=== PATIENT | female | born 1995 | race Caucasian/White ===

== ENCOUNTER 2019-04-07 19:32 | Emergency (ER) | payer BC, MEDICAID, SELFPAY ==
[2019-04-07 20:06] VITALS: BP 116/62; PULSE 112; RESP 20; TEMP 37.6; O2SAT 99; BMI 22.2
[2019-04-07 20:25] LABS: Basophils % 0.1 %; Hematocrit 40.1 % (37.0-47.0); Hemoglobin 13.4 g/dL (11.5-15.3); Lymphocytes # 0.3 10^3/uL (0.8-4.8); Lymphocytes % 3.6 %; Mean Corpuscular HGB Conc 33.4 g/dL (30.0-36.0); Mean Corpuscular Hemoglobin 28.9 pg (28.0-34.0); Mean Corpuscular Volume 86.6 fL (81-99); Mean Platelet Volume 10.1 fL (7.4-10.4); Monocytes # 0.5 10^3/uL (0.2-0.9); Monocytes % 6.2 %; Neutrophils # 7.9 10^3/uL (1.8-7.7); Neutrophils % 89.5 %; Nucleated Red Blood Cells % 0 %; Platelet Count 267 10^3/cmm (130-400); Red Blood Count 4.63 10^6/uL (4.1-5.3); Red Cell Distribution Width 12.9 % (12.1-15.1); White Blood Count 8.8 10^3/uL (4.0-10.0)
--- NOTE | 2019-04-07 20:39 | ED_ITS ---
Entered by Nelly Blount, acting as scribe for Tyler Sierra MD Apr 07, 2019 19:32 HPI - Nausea/Vomiting/Diarrhea General: Chief complaint: Nausea/Vomiting/Diarrhea Stated complaint: n/v, x9 weeks, r low side pain, fever Time Seen by Provider: 04/07/19 20:38 Source: patient and family Mode of arrival: ambulatory Limitations: no limitations History of Present Illness: HPI Narrative: 24 y/o female presents to the ED with complaint of N/V/D and abd pain. Pt states she has had intermittent fevers ranging from low grade to 101. MD elicited complaint: nausea, vomiting, diarrhea and abdominal pain Pertinent past history: abdominal surgery () Onset (ago): day(s) (1) Associated nausea: Yes Associated abdominal pain: Yes Location of pain: RUQ Relieving factors: none Associated symtoms: Reports nausea; Denies change in vision, chest pain or headache(s) Review of Systems Const: Reports: fever; Denies: chills Eyes: Denies: change in vision ENMT: Denies: throat pain or mouth pain Card: Denies: chest pain Resp: Denies: shortness of breath GI: Reports: abdominal pain, nausea, vomiting and diarrhea : Denies: difficulty urinating Musc: Denies: back pain or joint pain Skin/Breast: Denies: rash Neuro: Denies: headache or behavioral changes Psych: Denies: depression Endo: Denies: excessive urination Jorge/Lymph: Denies: easy bruising All/Imm: Denies: hives PFSH ED PFSH: Statuses (acute, chronic, etc) shown below reflect problem list status as previously entered and may not be historically accurate Social History Smoking and tobacco status: former smoker Physical Exam Const: COMMON NORMALS: no apparent distress, oriented x3 and healthy appearing HENMT: COMMON NORMALS: normocephalic and external nose normal HEAD & SCALP: normocephalic NOSE: external nose normal Eye: COMMON NORMALS: PERRL PUPIL: Yes PERRL Neck/C-Spine: COMMON NORMALS: full ROM and no lymphadenopathy Chest: COMMONS NORMALS: inspection of chest normal Resp: COMMON NORMALS: normal respiratory effort, no use of accessory muscles and clear to auscultation bilaterally AUSCULTATION: clear to auscultation bilaterally Cardio: COMMON NORMALS: regular rate and regular rhythm RATE: regular rate RHYTHM: regular rhythm GI: COMMON NORMALS: soft to palpation and no masses; negative for non-tender PALPATION: Yes soft Back/Pelvis: THORACIC SPINE/UPPER BACK: Yes normal to inspection Extremity: COMMON NORMALS: normal to inspection, full ROM and normal capillary refill Neuro: COMMON NORMALS: oriented x3 Psych: COMMON NORMALS: mental status grossly normal and cooperative Skin: COMMON NORMALS: no rashes or lesions noted GENERAL SKIN EXAM: no rashes or lesions noted Course Vital Signs: Vital signs: Vital Signs Temperature 99.8 F H 04/07/19 22:33 Pulse Rate 98 04/07/19 22:33 Respiratory Rate 16 04/07/19 22:33 Blood Pressure 106/59 04/07/19 22:33 Pulse Oximetry 98 04/07/19 22:33 MDM - Nausea/Vomiting/Diarrhea MDM Narrative: Medical decision making narrative: Patient presents here with vomiting and . Patient feels much improved here after Reglan and IV fluids. Patient's lab work here is normal and she has no signs appendicitis or cholecystitis. Patient is stable for discharge is return if worsening. Lab Data: Labs: Lab Results 04/07/19 04/07/19 04/07/19 Range/Units 20:16 20:17 20:17 WBC 8.8 (4.0-10.0) 10^3/ uL RBC 4.63 (4.1-5.3) 10^6/u L Hgb 13.4 (11.5-15.3) g/dL Hct 40.1 (37.0-47.0) % MCV 86.6 (81-99) fL MCH 28.9 (28.0-34.0) pg MCHC 33.4 (30.0-36.0) g/dL RDW 12.9 (12.1-15.1) % Plt Count 267 (130-400) 10^3/c mm MPV 10.1 (7.4-10.4) fL Neut % (Auto) 89.5 % Lymph % (Auto) 3.6 % [place] % (Auto) 6.2 % Eos % (Auto) 0.0 % Baso % (Auto) 0.1 % Neut # (Auto) 7.9 H (1.8-7.7) 10^3/u L Lymph # (Auto) 0.3 L (0.8-4.8) 10^3/u L [place]ke # (Auto) 0.5 (0.2-0.9) 10^3/u L Eos # (Auto) 0.0 (0.0-0.8) 10^3/u L Baso # (Auto) 0.0 (0.0-0.1) 10^3/u L Nucleated RBC % (a uto) 0 % Nucleated RBCs # 0.0 /100WBC Sodium 134 L (136-145) mmol/L Potassium 3.7 (3.5-5.1) mmol/L Chloride 99 (98-107) mmol/L Carbon Dioxide 19 L (22-29) mmol/L Anion Gap 19.7 H (5-19) BUN 6 (6-20) mg/dL Creatinine 0.5 (0.5-0.9) mg/dL GFR Calculation 149.1 H (90-130) mL/min Glucose 91 (74-109) mg/dL Calcium 9.8 (8.6-10.0) mg/Dl Total Bilirubin 0.2 (0.15-1.2) mg/dL AST 13 (0-32) U/L ALT 17 (0-33) U/L Alkaline Phosphata se 56 (35-105) IU/L Total Protein 7.3 (6.6-8.7) g/dL Albumin 4.6 (3.5-5.2) g/dL Globulin 2.7 (1.3-4.6) g/dL Lipase 13 (13-60) U/L Urine Color (Yellow) Urine Appearance (CLEAR) Urine pH (5-7) Ur Specific Gravit y (1.005-1.030) Urine Protein (Negative) Urine Glucose (UA) (Normal) Urine Ketones (Negative) Urine Occult Blood (Negative) Urine Nitrate (Negative) Urine Bilirubin (NEGATIVE) Urine Urobilinogen (Negative) mg/dL Ur Leukocyte Adela ase (Negative) Urine RBC (0-2) /hpf Urine WBC (0-5) /hpf Ur Squamous Epith Cells (0-5) Urine Bacteria (NONE) Urine Mucus Influenza Type A A g Negative (Negative) POC Influenza B Ag Negative (Negative) 04/07/19 Range/Units 22:05 WBC (4.0-10.0) 10^3/ uL RBC (4.1-5.3) 10^6/u L Hgb (11.5-15.3) g/dL Hct (37.0-47.0) % MCV (81-99) fL MCH (28.0-34.0) pg MCHC (30.0-36.0) g/dL RDW (12.1-15.1) % Plt Count (130-400) 10^3/c mm MPV (7.4-10.4) fL Neut % (Auto) % Lymph % (Auto) % [place]ke % (Auto) % Eos % (Auto) % Baso % (Auto) % Neut # (Auto) (1.8-7.7) 10^3/u L Lymph # (Auto) (0.8-4.8) 10^3/u L [place]ke # (Auto) (0.2-0.9) 10^3/u L Eos # (Auto) (0.0-0.8) 10^3/u L Baso # (Auto) (0.0-0.1) 10^3/u L Nucleated RBC % (a uto) % Nucleated RBCs # /100WBC Sodium (136-145) mmol/L Potassium (3.5-5.1) mmol/L Chloride (98-107) mmol/L Carbon Dioxide (22-29) mmol/L Anion Gap (5-19) BUN (6-20) mg/dL Creatinine (0.5-0.9) mg/dL GFR Calculation (90-130) mL/min Glucose (74-109) mg/dL Calcium (8.6-10.0) mg/Dl Total Bilirubin (0.15-1.2) mg/dL AST (0-32) U/L ALT (0-33) U/L Alkaline Phosphata se (35-105) IU/L Total Protein (6.6-8.7) g/dL Albumin (3.5-5.2) g/dL Globulin (1.3-4.6) g/dL Lipase (13-60) U/L Urine Color Yellow (Yellow) Urine Appearance Clear (CLEAR) Urine pH 6.5 (5-7) Ur Specific Gravit y 1.015 (1.005-1.030) Urine Protein 1+ H (Negative) Urine Glucose (UA) Norm (Normal) Urine Ketones 2+ H (Negative) Urine Occult Blood Neg (Negative) Urine Nitrate Negative (Negative) Urine Bilirubin Neg (NEGATIVE) Urine Urobilinogen Norm (Negative) mg/dL Ur Leukocyte Adela ase Negative (Negative) Urine RBC 0-4 H (0-2) /hpf Urine WBC None (0-5) /hpf Ur Squamous Epith Cells 0-4 H (0-5) Urine Bacteria Trace (NONE) Urine Mucus 2+ Influenza Type A A g (Negative) POC Influenza B Ag (Negative) Discharge Plan Discharge Patient Disposition: Home, Self-Care Clinical Impression: Hyperemesis gravidarum Condition: Stable Prescriptions: New Reglan 10 mg tablet 10 mg PO Q6H PRN (Reason: nausea and vomiting) Qty: 20 RF: 0 Discharge Orders: Discharge Order (Routine); Ordered 04/07/19 Ordered By: Tyler Sierra Referrals: [facility] [Other] Val Abreu MD [Physician] - 4-7 days Discharge Diet: Advance as tolerated Discharge Activity: Resume usual activity Patient Instructions: Hyperemesis Gravidarum (ED) Discharge Date/Time: 04/07/19 22:34 Coding Level of Care Code ED Crew Person for Chg Fwd Exam Problem Focused The documentation recorded by the Jose Alejandro amanda Ashley, accurately reflects the service I personally performed and the decisions made by Rigo no Korby, MD Apr 07, 2019 19:32
[2019-04-07 20:46] LABS: Alanine Aminotransferase 17 U/L (0-33); Albumin Level 4.6 g/dL (3.5-5.2); Alkaline Phosphatase 56 IU/L (35-105); Anion Gap 19.7 (5-19); Aspartate Amino Transferase 13 U/L (0-32); Blood Urea Nitrogen 6 mg/dL (6-20); Calcium 9.8 mg/Dl (8.6-10.0); Carbon Dioxide 19 mmol/L (22-29); Chloride 99 mmol/L (98-107); Globulin 2.7 g/dL (1.3-4.6); Glomerular Filtration Rate 149.1 mL/min (90-130); Glucose 91 mg/dL (74-109); Lipase 13 U/L (13-60); Potassium 3.7 mmol/L (3.5-5.1); Sodium 134 mmol/L (136-145); Total Bilirubin 0.2 mg/dL (0.15-1.2); Total Protein 7.3 g/dL (6.6-8.7)
[2019-04-07 20:51] LABS: Influenza A by IFA Negative (Negative); Influenza B by IFA Negative (Negative)
[2019-04-07] MEDS: sodium chloride 0.9% 1,000 ML 999 ML IV (21:07)
[2019-04-07] MEDS: metoclopramide 5 mg/mL SDV 2 mL 10 MG IVP (21:07)
[2019-04-07] MEDS: diphenhydrAMINE 50 mg/mL SDV 1mL IVP (21:07)
[2019-04-07 22:10] LABS: Urine Appearance Clear (CLEAR); Urine Color Yellow (Yellow); pH Urine 6.5 (5-7)
[2019-04-07 22:11] LABS: Add Urine Microscopic? YES; Bilirubin Urine Neg (NEGATIVE); Blood Urine Neg (Negative); Glucose Urine UA Norm (Normal); Ketones Urine 2+ (Negative); Leukocyte Esterase Urine Negative (Negative); Nitrate Urine Negative (Negative); Protein Urine 1+ (Negative); Specific Gravity, Urine 1.015 (1.005-1.030); Urobilinogen Urine Norm (Negative)
--- NOTE | 2019-04-07 22:16 | PC.NURSE ---
Provider at bedside with ultrasound machine.
[2019-04-07 22:18] LABS: Add Urine Culture? No; Bacteria Urine TRACE; Mucus Urine 2+; RBC Urine 0-4 /hpf (0-2); Squamous Epithelial Cell Urine 0-4 (0-5)
[2019-04-07 22:33] VITALS: BP 106/59; PULSE 98; RESP 16; TEMP 37.7; O2SAT 98
== END 2019-04-07 22:34 | disposition home or self-care (01) ==
PROVIDERS: Nurse Practitioner Family; Emergency Provider Emergency Medicine; Family Provider Family Medicine; PCP Family Medicine
DX: O21.0 Mild hyperemesis gravidarum (principal); Z3A.00 Weeks of gestation of pregnancy not specified; Z87.891 Personal history of nicotine dependence
CPT/HCPCS: 36415; 80053; 81003; 83690; 85025; 87804; 96360; 96374; 99282; J1200; J2765; J7030

== ENCOUNTER → 2019-06-10 14:40 | Outpatient (BNVA) | payer MEDICAID, SELFPAY | PROVIDERS: Family Provider Family Medicine; PCP Family Medicine; Visit Provider Nurse Practitioner Women's Health | DX: O09.299 Supervision of pregnancy with other poor reproductive or obstetric history, unspecified trimester (principal); Z87.59 Personal history of other complications of pregnancy, childbirth and the puerperium; O34.219 Maternal care for unspecified type scar from previous cesarean delivery; O09.219 Supervision of pregnancy with history of pre-term labor, unspecified trimester; Z3A.17 17 weeks gestation of pregnancy | CPT/HCPCS: 80053; 80076; 80306; 84156; 84315; 85027; 86592; 86762; 86803; 86850; 86900; 87340; 87806 ==

== ENCOUNTER → 2019-06-23 11:27 | Outpatient (BNVA) | payer MEDICAID, SELFPAY | PROVIDERS: Family Provider Family Medicine; PCP Family Medicine; Visit Provider Obstetrics & Gynecology | DX: Z34.90 Encounter for supervision of normal pregnancy, unspecified, unspecified trimester (principal); O09.892 Supervision of other high risk pregnancies, second trimester; Z34.80 Encounter for supervision of other normal pregnancy, unspecified trimester; Z87.59 Personal history of other complications of pregnancy, childbirth and the puerperium | CPT/HCPCS: 84156; 84315; 87491; 87591 ==

== ENCOUNTER → 2019-07-01 09:32 | Outpatient (BNVA) | payer MEDICAID, SELFPAY | PROVIDERS: Family Provider Family Medicine; PCP Family Medicine; Visit Provider Obstetrics & Gynecology | DX: Z36.89 Encounter for other specified antenatal screening (principal); Z3A.21 21 weeks gestation of pregnancy | CPT/HCPCS: 76805; 84315 ==

== ENCOUNTER → 2019-08-25 10:13 | Outpatient (BNVA) | payer MEDICAID, SELFPAY | PROVIDERS: Family Provider Family Medicine; PCP Family Medicine; Visit Provider Nurse Practitioner Women's Health | DX: O09.899 Supervision of other high risk pregnancies, unspecified trimester (principal) | CPT/HCPCS: 81000; 82950; 85027 ==

== ENCOUNTER → 2019-08-27 08:14 | Outpatient (BNVA) | payer MEDICAID, SELFPAY | PROVIDERS: Family Provider Family Medicine; PCP Family Medicine; Visit Provider Nurse Practitioner Women's Health | DX: O09.893 Supervision of other high risk pregnancies, third trimester; Z87.59 Personal history of other complications of pregnancy, childbirth and the puerperium; Z3A.28 28 weeks gestation of pregnancy | CPT/HCPCS: 82951; 82952 ==

== ENCOUNTER 2019-10-14 14:26 | Outpatient (CLI) | payer MEDICAID, SELFPAY ==
[2019-10-14] VITALS (8 sets, daily range): BP systolic 125–150; BP diastolic 75–91; PULSE 76–94; RESP 18; TEMP 37.3; BMI 26.7
--- NOTE | 2019-10-14 14:53 | PC.NURSE ---
Patient placed on monitor prior to 1449, patients account was being edited by registration and patients strip prior to account being edited is gone.
[2019-10-14 15:55] LABS: Add Urine Microscopic? NO
[2019-10-14 15:57] LABS: Basophils % 0.2 %; Eosinophils # 0.1 10^3/uL (0.0-0.8); Eosinophils % 0.4 %; Hematocrit 38.5 % (37.0-47.0); Hemoglobin 12.5 g/dL (11.5-15.3); Lymphocytes # 2.1 10^3/uL (0.8-4.8); Lymphocytes % 11.3 %; Mean Corpuscular HGB Conc 32.5 g/dL (30.0-36.0); Mean Corpuscular Volume 89.3 fL (81-99); Mean Platelet Volume 11.7 fL (7.4-10.4); Monocytes # 0.6 10^3/uL (0.2-0.9); Monocytes % 3.5 %; Neutrophils # 15.55 10^3/uL (1.8-7.7); Neutrophils % 83.8 %; Nucleated Red Blood Cells % 0 %; Platelet Count 240 10^3/cmm (130-400); Red Blood Count 4.31 10^6/uL (4.1-5.3); Red Cell Distribution Width 13.2 % (12.1-15.1); White Blood Count 18.5 10^3/uL (4.0-10.0)
[2019-10-14 16:09] LABS: Bilirubin Urine Neg (NEGATIVE); Blood Urine Neg (Negative); Glucose Urine UA Norm (Normal); Ketones Urine Negative (Negative); Leukocyte Esterase Urine Negative (Negative); Nitrate Urine Negative (Negative); Protein Urine Neg (Negative); Specific Gravity, Urine 1.005 (1.005-1.030); Urine Appearance Clear (CLEAR); Urine Color Yellow (Yellow); Urobilinogen Urine Norm (Negative); pH Urine 7 (5-7)
[2019-10-14 16:12] LABS: Alanine Aminotransferase 8 U/L (0-33); Albumin Level 3.8 g/dL (3.5-5.2); Alkaline Phosphatase 117 IU/L (35-105); Anion Gap 17.3 (5-19); Aspartate Amino Transferase 15 U/L (0-32); Blood Urea Nitrogen 9 mg/dL (6-20); Calcium 9.2 mg/dL (8.5-10.5); Carbon Dioxide 22 mmol/L (22-29); Chloride 103 mmol/L (98-107); Glomerular Filtration Rate 149.1 mL/min (90-130); Glucose 88 mg/dL (65-115); Osmolality Calculated 281 mOsm/kg (285-295); Potassium 4.3 mmol/L (3.5-5.1); Sodium 138 mmol/L (136-145); Total Bilirubin 0.2 mg/dL (0.15-1.2); Total Protein 6.8 g/dL (6.6-8.7); Uric Acid 5.1 mg/dL (2.4-5.7)
[2019-10-14 16:59] LABS: Urine Creatinine 16 mg/dL (28-217); Urine Protein Random 4 mg/dL
[2019-10-14 17:26] LABS: UPRO/UCREAT Ratio 0.25 mg/mg CR
== END 2019-10-14 17:20 | disposition home or self-care (01) ==
LOC: OPOB 14:46 → OBGYN 17:09
PROVIDERS: Family Provider Family Medicine; PCP Family Medicine; Visit Provider Obstetrics & Gynecology
DX: O16.9 Unspecified maternal hypertension, unspecified trimester (principal); Z3A.00 Weeks of gestation of pregnancy not specified
CPT/HCPCS: 36415; 59025; 80053; 81003; 82570; 84156; 84550; 85025; 99211

== ENCOUNTER → 2019-10-20 09:35 | Outpatient (BNVA) | payer MEDICAID, SELFPAY | PROVIDERS: Family Provider Family Medicine; PCP Family Medicine; Visit Provider Obstetrics & Gynecology | DX: O09.899 Supervision of other high risk pregnancies, unspecified trimester (principal); Z87.59 Personal history of other complications of pregnancy, childbirth and the puerperium; F41.8 Other specified anxiety disorders; O34.219 Maternal care for unspecified type scar from previous cesarean delivery; O16.9 Unspecified maternal hypertension, unspecified trimester | CPT/HCPCS: 80053; 82570; 84156; 84315; 84550; 85025; 87081 ==

== ENCOUNTER → 2019-10-21 15:32 | Outpatient (BNVA) | payer MEDICAID, SELFPAY | PROVIDERS: Family Provider Family Medicine; PCP Family Medicine; Visit Provider Obstetrics & Gynecology | DX: Z87.59 Personal history of other complications of pregnancy, childbirth and the puerperium (principal) | CPT/HCPCS: 84156 ==

== ENCOUNTER 2019-10-26 13:15 | Inpatient (IN) | payer MEDICAID, SELFPAY ==
[2019-10-26] VITALS (59 sets, daily range): BP systolic 0–151; BP diastolic 0–100; PULSE 67–97; RESP 16; TEMP 36.8–37; BMI 26.9
[2019-10-26] MEDS: lactated ringers 1,000 ML 999 ML IV (14:01)
[2019-10-26 14:11] LABS: Basophils % 0.2 %; Eosinophils % 0.3 %; Hematocrit 40.3 % (37.0-47.0); Hemoglobin 12.9 g/dL (11.5-15.3); Lymphocytes # 2.1 10^3/uL (0.8-4.8); Lymphocytes % 18.5 %; Mean Corpuscular Hemoglobin 28.3 pg (28.0-34.0); Mean Corpuscular Volume 88.4 fL (81-99); Mean Platelet Volume 11.6 fL (7.4-10.4); Monocytes # 0.3 10^3/uL (0.2-0.9); Monocytes % 2.9 %; Neutrophils # 8.91 10^3/uL (1.8-7.7); Neutrophils % 77.2 %; Nucleated Red Blood Cells % 0 %; Platelet Count 269 10^3/cmm (130-400); Red Blood Count 4.56 10^6/uL (4.1-5.3); Red Cell Distribution Width 13.5 % (12.1-15.1); White Blood Count 11.5 10^3/uL (4.0-10.0)
[2019-10-26 14:20] LABS: Alanine Aminotransferase 8 U/L (0-33); Albumin Level 3.7 g/dL (3.5-5.2); Alkaline Phosphatase 122 IU/L (35-105); Aspartate Amino Transferase 14 U/L (0-32); Blood Urea Nitrogen 7 mg/dL (6-20); Calcium 8.7 mg/dL (8.5-10.5); Carbon Dioxide 21 mmol/L (22-29); Chloride 103 mmol/L (98-107); Globulin 3.4 g/dL (1.3-4.6); Glomerular Filtration Rate 120.8 mL/min (90-130); Glucose 103 mg/dL (65-115); Osmolality Calculated 280 mOsm/kg (285-295); Sodium 137 mmol/L (136-145); Total Bilirubin 0.2 mg/dL (0.15-1.2); Total Protein 7.1 g/dL (6.6-8.7); Uric Acid 5.8 mg/dL (2.4-5.7)
[2019-10-26] MEDS: oxytocin 30 UNIT/500 ML BAG IV (14:36)
[2019-10-26 14:54] LABS: Urine Creatinine 42 mg/dL (28-217); Urine Protein Random 5 mg/dL
[2019-10-26 15:09] LABS: UPRO/UCREAT Ratio 0.12 mg/mg CR
[2019-10-26] MEDS: dextrose 5%-lactated ringers 1,000 ML 125 ML IV (18:37)
[2019-10-27] VITALS (167 sets, daily range): BP systolic 0–162; BP diastolic 0–114; PULSE 60–133; RESP 15–16; TEMP 36.6–37.2; O2SAT 87–99
[2019-10-27] MEDS: dextrose 5%-lactated ringers 1,000 ML 125 ML IV ×3 (02:49→17:58)
[2019-10-27] MEDS: alum-mag-hydroxide-sime 30 mL UDC PO (04:19)
[2019-10-27] MEDS: lactated ringers 1,000 ML 999 ML IV ×2 (14:45→17:01)
--- NOTE | 2019-10-27 16:08 | ANES.PREANE2 ---
Pre-Anesthetic Assessment Pre-Anesthetic Assessment: Height/Weight: Height 1.68 m Weight 75.75 kg Temp Pulse Resp BP Pulse Ox 98.5 F 74 16 150/78 88 L 10/27/19 14:23 10/27/19 16:06 10/27/19 03:45 10/27/19 16:06 10/27/19 15:59 Preop Diagnosis: IUP Proposed Procedure: Lumbar Labor Epidural Was Beta Deyvi taken within 24 hours: N/A Social: Social History: No alcohol and No tobacco Exam: Pre-Anes Outpt Exam: alert, oriented x 3, clear to auscultation bilaterally and regular rate & rhythm Airway: Submandibular: WNL Cervical ROM: WNL MP: 2 Dentition: Full History/ROS: No significant history except as noted and No significant complaints Pulmonary: Pulmonary: None reported CV/HEM: CV/HEM: HTN Comments: gest. htn. hx pre=eclampsia : : None reported Hepatic: Hepatic: None reported GI: GI: GERD Metabolic: Metabolic: None reported Musc/skel: Musc/skel: None reported Neuropsych: Neuropsych: None reported Anesthetic Plan: ASA status: 2 Anesthesia: Regional (specify below) (epidural) Meds/Allergies Current Medications: Current Medications Generic Name Dose Route Start Last Admin Trade Name Freq PRN Reason Stop Dose Admin Al Hydrox/Mg [place] x/Simethicone 30 ml 10/26/19 13:23 10/27/19 04:19 Maalox PO 30 ml Q4H PRN Administration INDIGESTION Dextrose/Lactated Ringer's 1,000 mls @ 125 m ls/hr 10/26/19 13:30 10/27/19 10:44 Dextrose 5%-Lact ated Ringers IV 125 mls/hr .Q8H JEAN-PAUL Administration PFSH Anesthesia PFSH: Medical History (Updated 10/26/19 @ 16:40 by Val Abreu MD) Anxiety with depression Diagnosed many years ago. Her symptoms were initially well controlled with Wellbutrin and clonazepam. She is right now seeing an online counselor and as she is doing well with this she has gone off her medication since June 2017 and denies any symptoms and is doing well off of medication. She is being managed by her primary care provider Dr. Gonzalez in [place], [place]. No pertinent past medical history Denies diabetes, asthma, hypertension, seizures, DVT/PE PMD: Dr. Gonzalez Surgical History H/O section (09/22/15) Dr Capps, at [facility], [place], [place].Complications: Preclampsia and breech ----Primary low transverse delivery with 2 layer closure documented. No extensions. Family History Father Diabetes Hypertension Grandfather Heart disease Maternal grandfather Paternal grandfather Stroke Maternal grandfather Family/Other Stroke Maternal uncle Heart disease Maternal uncle Breast cancer Maternal great aunt, diagnosed at age 47 Grandmother Stroke Maternal grandmother Lung cancer paternal Mother Hypertension Denies family history of Colon cancer Ovarian cancer Hyperlipidemia Uterine cancer Thyroid condition Social History Smoking and tobacco status: former smoker Alcohol intake: former Additional social history: - Tobacco Use: Started smoking at the age of 13 and smoked about 5 cigarettes a day. Quit when she found out she was in February 2015, started smoking again in 10/2015 and smoked up to 1 pack per day until 11/2019 when she quit again due to being . Alcohol Use: Drinks an alcoholic beverage twice monthly on average; denies use with . Drug Use: Reports history of marijuana use, starting at age 16; smoked for approximately 2 years and denies any drug use since then. 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 Female Reproductive History: Date of last menstrual period: 02/06/19 : 2 Data Anesthesia CBC & Chem 7: 10/26/19 13:45 10/26/19 13:45 Other Labs: Laboratory Results - last 48 hr 10/26/19 10/26/19 10/26/19 13:45 13:45 13:45 WBC 11.5 H RBC 4.56 Hgb 12.9 Hct 40.3 MCV 88.4 MCH 28.3 MCHC 32.0 RDW 13.5 Plt Count 269 MPV 11.6 H Neut % (Auto) 77.2 Lymph % (Auto) 18.5 [place] % (Auto) 2.9 Eos % (Auto) 0.3 Baso % (Auto) 0.2 Neut # (Auto) 8.91 H Lymph # (Auto) 2.1 [place] # (Auto) 0.3 Eos # (Auto) 0.0 Baso # (Auto) 0.0 Nucleated RBC % (auto) 0 Nucleated RBCs # 0.0 Sodium 137 Potassium 4.0 Chloride 103 Carbon Dioxide 21 L Anion Gap 17.0 BUN 7 Creatinine 0.6 GFR Calculation 120.8 Glucose 103 Calculated Osmolality 280 L Uric Acid 5.8 H Calcium 8.7 Total Bilirubin 0.2 AST 14 ALT 8 Alkaline Phosphatase 122 H Total Protein 7.1 Albumin 3.7 Globulin 3.4 U Random Total Protein Urine Creatinine Protein/Creatinin Ratio Blood Type A Positive Rho(D) Type Positive Antibody Screen Negative 10/26/19 13:45 WBC RBC Hgb Hct MCV MCH MCHC RDW Plt Count MPV Neut % (Auto) Lymph % (Auto) [place] % (Auto) Eos % (Auto) Baso % (Auto) Neut # (Auto) Lymph # (Auto) [place] # (Auto) Eos # (Auto) Baso # (Auto) Nucleated RBC % (auto) Nucleated RBCs # Sodium Potassium Chloride Carbon Dioxide Anion Gap BUN Creatinine GFR Calculation Glucose Calculated Osmolality Uric Acid Calcium Total Bilirubin AST ALT Alkaline Phosphatase Total Protein Albumin Globulin U Random Total Protein 5 Urine Creatinine 42 Protein/Creatinin Ratio 0.12 Blood Type Rho(D) Type Antibody Screen Cardiac Studies: No Data to Display Anesthesia Procedures Epidural: Time Out Performed: Yes Consents Signed: Procedure Consent Consent: from patient, risks and benefits reviewed and patient agrees to proceed Lumbar Level: L3-L4 Epidural position: sitting Epidural procedure: sterile prep of area, 1% lidocaine to numb the area (5), 18 g needle, negative for paresthesia passed, neg for paresthesia, test dose given, 1.5% xylocaine 1:200k epi (5), 0.2% Ropivacaine bolus ml (5), placed PCEA (5cc q10min x 3), no systemic response, sterile dressing applied, L.U.D. no apparent complications and 0.2% Ropiavacaine @ mls/hr (13) Additional Comments: Called to OB for epidural placement, pt evaluated and assessed for placement and explained procedure. Labs reviewed. Pt agrees to proceed. placed to 5cm in space and tolerated well. Bolused with epidural pump and VSS throughout per nursing chart. Last BP 124/78. Pain much improved.
--- NOTE | 2019-10-27 19:07 | P.HP_ITS ---
Providers/Chief Complaint Admitting Physician: Val Abreu MD Primary Care Provider: Aime Gonzalez Chief Complaint: Gestational Hypertension Induction HPI RESEARCH ASSOCIATE PROFESSOR History of Present Illness Patient is a 24-year-old white female 2, para 0-1-0-1 with an LMP of 02/06/2019 and an EDC of 11/13/2019 based on LMP and consistent with a 21-week ultrasound. She presented to labor and delivery on 10/26/2019 at 37-3/7 weeks gestation for induction of labor due to gestational hypertension. Her care has been mainly provided by Dr. Tian at [facility]. Patient was noted to have elevated blood pressures last week and was noted to have elevated blood pressures on the day of admission. Based upon this, she was diagnosed with gestational hypertension. Her past history was significant for having had severe preeclampsia with her first requiring emergency section at 33 weeks gestation. Patient was admitted to the hospital by Dr. Tian in the afternoon of 10/26/2019 and was started on Pitocin for induction of labor. She was continued on Pitocin through the day and by the evening had made no significant change and the Pitocin was stopped. Pitocin was restarted early this morning and continued through the day. At around 1300 today artificial rupture membranes was p erformed by Dr. Tian with clear fluid present. Patient became more uncomfortable through the afternoon and had epidural placed. During the afternoon, she had a reactive tracing with subtle late decelerations periodically. At approximately 16:40 she developed recurrent variable decelerations in the late position with loss of variability. Pitocin was stopped at that time and typical intrauterine resuscitation performed with position changes, oxygen, and fluid boluses. Following this as the contractions slowed, she continued to have subtle late decelerations. However, reactivity returned despite the decelerations. As long as contractions were further than 6 minutes apart, the late decelerations were gone. However anytime contractions were closer than this late decelerations return. LABS 06/10/2019 Blood type: A+ Antibody screen: Negative CBC: 12.7 <12.9/39.3 > 292 Rubella : 127.3--immune Hepatitis B surface antigen: Nonreactive Hepatitis C antibody: Nonreactive RPR: Nonreactive HIV: Nonreactive Drug screen: Negative LFT: AST:10/ALT:7/albumin:4.0/alkaline phosphatase: 53 Urine culture: <5,000 COLS/ML MIXED JACEK-- PROBABLE CONTAMINANTS. CF: Declines 06/10/2019 24-hour urine for total protein: 78 mg (total volume 177 5 mL) 06/23/2019 Pap smear: negative for intraepithelial lesion or malignancy--09/22/2018 Gonorrhea: Negative Chlamydia: Negative 07/01/2019 Quad screen: Declined 08/25/2019 28 week CBC: 14.3 <13.0/40.1 >266 GCT: 176 08/26/2019 3 hour GTT------> 90, 184, 140, 105--1 abnormal level; no further follow-up necessary 10/20/2019 GBS: Negative CBC : 12.5<12.6/39.2> 267 AST/ALT-01/29; BUN/creatinine-within normal limits Uric acid-5.6 Protein creatinine ratio-0.12-not preeclamptic OB Ultrasound LMP-02/06/2019 SAMANTHA by LMP-11/13/2019 1) 07/01/2019([facility]-anatomy) AUA-21w6d SAMANTHA by sono-11/05/2019 S=D ----------> single live intrauterine , transverse backup, anterior gra de 1 placenta without previa, visually normal fluid, CUSTOMER QUALITY SPECIALIST 4.9 cm, male, cervix closed measuring 3.6 cm, EFW 465 g, 1 pound 0 ounce, 96 percentile. Anatomy visualized normal and complete except for poor visualization of four-chamber view of heart. Recommend repeat evaluation at 24 weeks. 2) 07/28/2019([facility]-anatomy) AUA-25w5d SAMANTHA by sono-11/05/2019 S=D ------> single live intrauterine , male, breech, anterior grade 1 placenta without previa, CUSTOMER QUALITY SPECIALIST 6.1 cm, cervix closed measuring 3.9 cm, EFW 810 g, 1 pound 13 ounces, 78 percentile. Previously nonvisualized anatomy-heart visualized and appears within normal limits. Biparietal diameter measures slightly larger than other measurements-consider sonogram for growth in 4 to 6 weeks--- at 29 weeks 3) 09/02/2019([facility]-growth) AUA-31w6d SAMANTHA by sono-10/29/2019 S=D -------> single live intrauterine , male, cephalic, anterior grade 1 placenta without previa, BRENTON 18 cm, CUSTOMER QUALITY SPECIALIST 6.5 cm, cervix closed-3.4 cm, EFW 1775 g, 3 pounds 15 ounces, 91 percentile. Appropriate interval growth. 4) 10/20/19([facility]-growth) AUA-36w3d SAMANTHA by sono-11/14/2019 S=D -------> single live intrauterine , male, cephalic, anterior grade 1 placenta without previa, BRENTON 9.9 cm, CUSTOMER QUALITY SPECIALIST 7.8 cm, cephalic, EFW 3014 g, 6 pounds 10 ounces, 50th percentile. Review of Systems Const: Denies: fever(s) or chills Eyes: Denies: change in vision ENMT: Denies: throat pain or nasal congestion Card: Reports: swelling of feet/ankles; Denies: chest pain, palpitations or lightheadedness Resp: Denies: dyspnea, productive cough, non-productive cough or wheezing GI: Denies: abdominal pain, nausea or vomiting : Denies: difficulty voiding or dysuria Neuro: Denies: headache(s), dizziness or seizure-like activity Psych: Reports: anxiety; Denies: depression Jorge/Lymph: Denies: easy bruising or easy bleeding Medications/Allergies Home Medications Medication Instructions Recorded Confirmed Last Taken Type PNV 153-FA 400 mcg-om3 35 mg-dha 2 tab PO DAILY tab 06/10/19 10/26/19 10/14/19 09:00 History 25 mg-epa 5 mg-fish oil chew tablet aspirin 81 mg tablet,delayed 81 mg PO DAILY 06/23/19 10/26/19 10/14/19 09:00 History release Allergies Allergy/AdvReac Type Severity Reaction Status Date / Time Sulfa (Sulfonamide Allergy Rash/itchin Verified 10/26/19 08:15 Antibiotics) g PFSH RESEARCH ASSOCIATE PROFESSOR PFSH: Medical History Anxiety with depression Diagnosed many years ago. Her symptoms were initially well controlled with Wellbutrin and clonazepam. She is right now seeing an online counselor and as she is doing well with this she has gone off her medication since June 2017 and denies any symptoms and is doing well off of medication. She is being managed by her primary care provider Dr. Gonzalez in [place], [place]. No pertinent past medical history Denies diabetes, asthma, hypertension, seizures, DVT/PE PMD: Dr. Gonzalez Surgical History H/O section (09/22/15) Dr Capps, at [place], [place].Complications: Preclampsia and breech ----Primary low transverse delivery with 2 layer closure documented. No extensions. Family History Father Diabetes Hypertension Grandfather Heart disease Maternal grandfather Paternal grandfather Stroke Maternal grandfather Family/Other Stroke Maternal uncle Heart disease Maternal uncle Breast cancer Maternal great aunt, diagnosed at age 47 Grandmother Stroke Maternal grandmother Lung cancer paternal Mother Hypertension Denies family history of Colon cancer Ovarian cancer Hyperlipidemia Uterine cancer Thyroid condition Social History Smoking and tobacco status: former smoker Alcohol intake: former Additional social history: - Tobacco Use: Started smoking at the age of 13 and smoked about 5 cigarettes a day. Quit when she found out she was in February 2015, started smoking again in 10/2015 and smoked up to 1 pack per day until 11/2019 when she quit again due to being . Alcohol Use: Drinks an alcoholic beverage twice monthly on average; denies use with . Drug Use: Reports history of marijuana use, starting at age 16; smoked for approximately 2 years and denies any drug use since then. 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 History History History 2 Term 0 Miscarriages/Ectopic 0 1 Living Children 1 Care SAMANTHA Calculator Estimated Delivery Date Method Current WG Current Estimate 11/13/19 LMP (Certain) 37w 4d Expected Delivery Route/Plan Trial of labor Specific Issues/Plans * Hx of Pre-Eclampsia in prior -severe preeclampsia requiring delivery at 32 weeks * Hx of C/S--low transverse delivery- candidate and desires BRAD * History of anxiety and depression-not currently on any medication Vitals/I&O/Wt Last Vital Signs Temp 98.3 F 10/27/19 16:20 Pulse 94 10/27/19 18:58 Resp 16 10/27/19 03:45 BP 110/81 10/27/19 18:58 Pulse Ox 88 L 10/27/19 15:59 10/27/19 10/27/19 10/27/19 06:59 14:59 22:59 Intake Total 1007.50 / 2043.450 1054.717 / 1054.717 975.917 / 2029.634 Balance 1007.50 / 2043.450 1054.717 / 1054.717 975.917 / 2029.634 Weight last 48 hrs Weight 167 lb Physical Exam Const: COMMON NORMALS: no acute distress, average body habitus, alert and well nourished GENERAL APPEARANCE: well developed ORIENTATION/CONSCIOUSNESS: Yes oriented to person, Yes oriented to place and Yes oriented to time Resp: COMMON NORMALS: normal respiratory effort and clear to auscultation bilaterally AUSCULTATION: clear to auscultation bilaterally Cardio: COMMON NORMALS: regular rate, regular rhythm, No gallops present (Cardio) and No rub (Cardio) RATE: regular rate RHYTHM: regular rhythm GI: COMMON NORMALS: Soft to palpation, non-tender, No hepatosplenomegaly present and no masses (Except for gravid uterus.) AUSCULTATION: Yes normoactive bowel sounds PALPATION: Yes Soft to palpation, Yes No hepatos plenomegaly present and No Hernia present Neuro: SENSORIUM/ORIENTATION: Yes alert, Yes oriented to person, Yes oriented to place and Yes oriented to time Psych: COMMON NORMALS: normal affect MOOD & AFFECT: Yes euthymic mood Urinary Catheter Management^: Lozano: Cath Placed During This Visit: yes Urinary Catheter Date of Insertion: 10/27/19 Urinary Catheter Time of Insertion: 16:50 Data : 10/26/19 13:45 10/26/19 13:45 Other data: monitoring currently baseline heart rate 125 with moderate variability and accelerations present. Occasional variable decelerations. A&P Assessment and plan (1) Non-reassuring heart tones complicating , antepartum: Patient had recurrent late decelerations with loss of variability and loss of accelerations. At this point with infrequent contractions, the decelerations have resolved. However anytime contractions have gotten closer than about every 6 minutes the late decelerations returned. I discussed with patient that based upon this, the likelihood of her delivering vaginally is very small. I discussed with her option of proceeding to section. Risks of section was discussed with her including bleeding to the point of needing a blood, transfusion, infection, and injury to intra-abdominal organs including bowel, bladder, blood vessels, nerves, and ureters. I discussed with patient and her partner that the preferred time for doing the is not when it is an emergency situation. Questions were answered. They have decided to go ahead and proceed with section. Status: Acute (2) Gestational hypertension: Patient has had elevated blood pressures to the point to meet criteria for gestational hypertension. She has not required medications to treat the blood pressure at this time. She was evaluated for preeclampsia and did not meet criteria for preeclampsia. Blood pressures will continue to be followed . Status: Acute Qualifiers: Trimester: third trimester Qualified Code(s): O13.3 - Gestational [preg indira-induced] hypertension without significant proteinuria, third trimester (3) History of delivery, currently : Status: Acute Attestations Medical Necessity Statement*: Patient being induced for gestational hypertension at 37 weeks. Coding Level of Care Code Acute Metal Storage Worker for Alex Ivanna Diagnoses Non-reassuring heart tones complicating , antepartum O36.8390 Gestational hypertension O13.3 Trimester: third trimester History of delivery, currently O34.219
[2019-10-27] MEDS: famotidine 20 mg/2 mL INJ IVP (19:19)
[2019-10-27] MEDS: citric acid-sodium citrate 30 mL UDC PO (19:19)
[2019-10-27] MEDS: metoclopramide 5 mg/mL SDV 2 mL 10 MG IVP (19:19)
--- NOTE | 2019-10-27 20:36 | P.OP_ITS ---
Operative Report Date of procedure: October 27, 2019 Pre-op Diagnosis: 1. Nonreassuring heart tones, 2. Gestational hypertension at 37-4/7 weeks, 3. Previous section, failed Post-op Diagnosis: 1. Nonreassuring heart tones -delivered, 2. Gestational hypertension -delivered, 3. Failed , 4. Viable male Procedure Done: Repeat low transverse section Specimens removed/disposition: None Surgeon: Cecilio Hidalgo Printing Binder[employer] Assistant: None Anesthesia: Epidural Estimated blood loss (mL): 400 IV fluids (mL): 400 Complications: None Findings: 1. Viable male weighing 5 lbs 5 oz (2420 g) with a length of 19 inches and Apgars of 9 at 1 minute and 9 at 5 minutes. 2. Normal-appearing uterus, tubes, and ovaries. Brief History: 24-year-old white female 2, para 0-1-0-1 with an LMP of 02/06/2019 and an EDC of 11/13/2019 based on LMP and consistent with a 21-week ultrasound, which placed her at 37-4/7 weeks gestation today. Patient had been admitted on 10/26/2019 for induction of labor due to gestational hypertension. She was attempting . Patient made it to approximately 5 cm dilation before developing recurrent late decelerations. Since she was distant from delivery, decision was made to go ahead and proceed to a section. Procedure: Patient was taken to the operating room where epidural anesthesia was further dosed. She was prepped and draped in the usual sterile fashion in a dorsal supine position with a leftward tilt. Lozano catheter and sequential compression boots had been placed prior to starting the case. A Pfannenstiel skin incision was made with a knife through the patient's prior scar and carried down to the underlying fascia with the knife. Fascia was incised in the midline with the knife and extended laterally with Hardin scissors. Superior aspect of the fascia was grasped with Em clamps, elevated, and sharply and bluntly dissected. The inferior aspect of the fascia was grasped with Em clamps, elevated, and sharply and bluntly dissected. The rectus muscles were in the midline. Peritoneum was sharply entered. Peritoneal incision was extended both superiorly and inferiorly with good visualization of the bladder. Bladder blade was inserted. The vesicouterine peritoneum was tented up and sharply entered. It was extended laterally and the bladder flap was created digitally. Bladder blade was reinserted. A transverse incision was made with the knife in the lower uterine segment. Clear fluid was obtained upon entry into the uterine cavity. The 's head was delivered and 2 loops of nuchal cord were noted and reduced. The rest of the infant delivered atraumatically. Nose and mouth were suctioned with bulb suction. Cord was clamped and cut and the infant was handed off to Dr. Melendez and the waiting nurses. Cord blood was obtained. Placenta was delivered via uterine massage. Patient received 20 units of Pitocin in the IV fluids. The uterus was exteriorized and cleared of clots and debris. The uterine incision was closed in a running locking fashion using 0 Vicryl suture. The incision was imbricated using 0 Vicryl suture in a horizontal mattress fashion. The incision was inspected and noted to be hemostatic. Posterior cul-de-sac was thoroughly irrigated and cleared of clots and blood. The uterus was returned to the abdomen. The uterine incision was irrigated and noted to be hemostatic. The gutters were cleared of clots and blood. The rectus muscles and peritoneum were reapproximated in the midline using interrupted stitches of 2-0 Vicryl suture. The muscle layer was irrigated and noted to be hemostatic. The fascia was reapproximated using 0 Vicryl suture in a running fashion. The subcutaneous layer was irrigated and brought to hemostasis using electrocautery. It was reapproximated using 3-0 plain suture in an interrupted fashion. Skin was reapproximated using 4-0 Vicryl suture in a subcuticular fashion. Steri-Strips were applied. Patient tolerated the procedures well. Sponge, needle, and instrument counts were correct. DRAINS: Lozano catheter POSTOPERATIVE STATUS: The patient was left to recover in satisfactory condition
[2019-10-28] VITALS (9 sets, daily range): BP systolic 119–156; BP diastolic 46–95; PULSE 75–90; RESP 15–18; TEMP 36.6–37.1; O2SAT 95–100
[2019-10-28] MEDS: dextrose 5%-lactated ringers 1,000 ML 125 ML IV (01:18)
--- NOTE | 2019-10-28 04:35 | PC.NURSE ---
PATIENT REPORTS TO THIS NURSE SHE HAS PASSED GAS .
--- NOTE | 2019-10-28 04:56 | PC.NURSE ---
PATIENT WALKED LENGTH OF HALLWAY THREE TIMES WITH THIS NURSE. PATIENT TOLERATED WALKING WELL, STATED IT FELT GOOD TO BE MOVING . PATIENT RETURNED TO HER ROOM AND IS SITTING UP IN BEDSIDE CHAIR. CLWR.
--- NOTE | 2019-10-28 06:57 | PM.PN ---
Subjective Subjective: Interval history: Patient reports doing well this morning. States pain is been well controlled. Denies lightheadedness or dizziness with ambulation. Denies shortness of breath or chest pains. Reports tolerating liquids without nausea or vomiting. Reports passing flatus. States bleeding like a heavy period. Vitals/I&O/Wt Last Vital Signs Temp 98.3 F 10/28/19 04:30 Pulse 81 10/28/19 04:30 Resp 16 10/28/19 04:30 BP 119/46 10/28/19 04:30 Pulse Ox 98 10/28/19 04:30 10/27/19 10/27/19 10/28/19 14:59 22:59 06:59 Intake Total 1054.717 / 2850.671 1108.917 / 2430.634 368.75 / 2799.384 Output Total 1150 / 1150 350 / 1500 Balance 1054.717 / 1054.717 225.917 / 1280.634 18.75 / 1299.384 Weight last 48 hrs Weight 167 lb Physical Exam Const: COMMON NORMALS: no acute distress, average body habitus, alert and well nourished GENERAL APPEARANCE: well developed ORIENTATION/CONSCIOUSNESS: Yes oriented to person, Yes oriented to place and Yes oriented to time Resp: COMMON NORMALS: normal respiratory effort and clear to auscultation bilaterally AUSCULTATION: clear to auscultation bilaterally Cardio: COMMON NORMALS: regular rate, regular rhythm, No gallops present (Cardio), No murmurs present (Cardio) and No rub (Cardio) RATE: regular rate RHYTHM: regular rhythm GI: COMMON NORMALS: Soft to palpation, No hepatosplenomegaly present and no masses (Except for mildly tender uterus) AUSCULTATION: Yes normoactive bowel sounds PALPATION: Yes Soft to palpation, Yes No hepatosplenomegaly present and No Hernia present : EXTERNAL FEMALE EXAM: No Hernia present Extremity: COMMON NORMALS: no calf tenderness NARRATIVE EXTREMITY EXAM: 1+ lower extremity edema bilaterally Neuro: SENSORIUM/ORIENTATION: Yes alert, Yes oriented to person, Yes oriented to place and Yes oriented to time Psych: COMMON NORMALS: normal affect MOOD & AFFECT: Yes euthymic mood Urinary Catheter Management^: Lozano: Cath Placed During This Visit: yes Urinary Catheter Date of Insertion: 10/27/19 Urinary Catheter Time of Insertion: 16:50 Data : 10/26/19 13:45 10/26/19 13:45 A&P Assessment and plan (1) Failed attempted vaginal after previous delivery: Postoperative day 1 status post repeat section after attempted with nonreassuring heart tones. Patient doing well today. Increase activities today. May shower later on today. Patient was passing flatus and had was a day advance to regular diet this morning. Reporting good pain control, but still seeing effects of Duramorph. Discussed with patient use of pain medications as the Duramorph wears off. Status: Acute (2) induced hypertension, delivered, current hospitalization: Patient has had intermittently elevated blood pressure since delivery. None of them to the severe range. Continue to follow blood pressure readings for now as she increases activities today. At this point medication is not needed. Status: Acute Attestations Medical Necessity Statement*: Postoperative day 1 status post section Coding Level of Care Code Acute Auto Travel Counselor for Chg Fwd Diagnoses Failed attempted vaginal after previous delivery O66.41 induced hypertension, delivered, current hospitalization O13.4
[2019-10-28] MEDS: docusate sodium 100 mg Capsule PO ×2 (10:15→17:27)
[2019-10-28] MEDS: prenatal vitamin Capsule 1 CAP PO (10:15)
[2019-10-28 11:32] LABS: Hematocrit 33.5 % (37.0-47.0); Hemoglobin 10.6 g/dL (11.5-15.3); Mean Corpuscular HGB Conc 31.6 g/dL (30.0-36.0); Mean Corpuscular Hemoglobin 28.6 pg (28.0-34.0); Mean Corpuscular Volume 90.3 fL (81-99); Mean Platelet Volume 11.2 fL (7.4-10.4); Platelet Count 224 10^3/cmm (130-400); Red Blood Count 3.71 10^6/uL (4.1-5.3); Red Cell Distribution Width 13.4 % (12.1-15.1); White Blood Count 12.9 10^3/uL (4.0-10.0)
--- NOTE | 2019-10-28 22:00 | PC.NURSE ---
Bandage off per protocol, patient up to shower. Tolerates activity well. AR RN
[2019-10-29] VITALS (7 sets, daily range): BP systolic 143–168; BP diastolic 90–103; PULSE 76–99; RESP 15–18; TEMP 36.7–36.9; O2SAT 98
[2019-10-29] MEDS: HYDROcodone-acetaminophen 5-325 mg Tablet PO ×2 (05:49→10:12)
[2019-10-29] MEDS: docusate sodium 100 mg Capsule PO (09:34)
[2019-10-29] MEDS: prenatal vitamin Capsule 1 CAP PO (09:34)
--- NOTE | 2019-10-29 11:00 | PC.NURSE ---
This mom reports baby nursing well. She reports no nipple soreness and has no concerns about .
--- NOTE | 2019-10-29 12:49 | PM.OBGYDC ---
Discharge Providers SPEECH LANGUAGE PATHOLOGIST TRAVEL Date of Admission: 10/26/19 13:15 Date of Discharge: 10/29/19 Attending Provider at Admission: Val Abreu MD Attending Provider at Discharge: Cecilio Hidalgo MD Primary Care Provider: Aime Gonzalez Diagnoses at Discharge Discharge Diagnosis (1) Failed attempted vaginal after previous delivery: Status: Resolved (2) induced hypertension, delivered, current hospitalization: Status: Acute Reason for Visit Reason for Visit: Gestational Hypertension Induction Hospital Course Discharge Summary: Patient is a 24-year-old white female 2, para 0-1-0-1 with an LMP of 02/06/2019 and an EDC of 11/13/2019 based on LMP and consistent with a 21-week ultrasound, which placed her at 37-3/7 weeks gestation at the time of admission. She presented to labor and delivery on 10/26/2019 in the afternoon for induction of labor due to gestational hypertension. Her care has been complicated by prior section and was wanting to attempt . She had also had elevated blood pressures over the week prior to admission and was diagnosed with gestational hypertension. She was initially started on low dose continuous Pitocin through the afternoon and evening. Pitocin was stopped during the night and then restarted the following morning. By approximately 13:00 on 10/26 artificial rupture membranes was performed by Dr. Tian with clear fluid present. She became more uncomfortable and had epidural placed. During the afternoon, she developed intermittent late decelerations with a reactive tracing present. At approximately 17:00, she developed repetitive deep variable and late decelerations. At this point Pitocin was stopped fluid bolus started and oxygen placed. As the contractions slowed the decelerations decreased in severity and eventually went away once the contractions were further than 6 minutes apart. Late decelerations returned once contractions became closer than 6 minutes. Patient at this point was only 5 cm dilation. As a result, I discussed with her recommendation for section. This was discussed with her and her partner and she decided to go ahead and proceed with section. A repeat low transverse section was performed with the delivery of a viable male infant weighing 5 pounds 5 ounces (2420 g) with a length of 19 inches and Apgars of 9 at 1 minute and 9 at 5 minutes. Mother and infant did well following delivery. Patient received Duramorph through her epidural for pain relief following . Postoperative Day 1 Patient reported her pain had been well controlled with Duramorph. She denied lightheadedness or dizziness with ambulation. She denied shortness of breath or chest pains. She was tolerating liquids that morning without nausea or vomiting. She has started passing flatus. She was afebrile with normal to mildly elevated blood pressures. Diet was advanced. Activities were increased. By the evening, the Duramorph had worn off and she was started on oral pain medications. Postoperative Day 2 Patient reported having more pain that morning, however, she had not been taking the stronger pain medication. She was tolerating a regular diet without nausea or vomiting. She was ambulating without lightheadedness or dizziness. She was urinating without difficulty. She reported her bleeding had slowed. She was wanting to go home that day. Physical exam: See below Plan That morning, patient was noted to have elevated blood pressures more than she had had the previous day. It was originally thought to possibly be related to pain and appropriate use of pain medication was discussed with her. Even with taking the additional pain medication, blood pressures continued to be elevated and she was started on labetalol 100 mg twice a day prior to discharge. She was discharged home after lunch on postoperative day 2. Discharge instructions were discussed with her. She was to continue vitamins. She had been started on labetalol. She was given prescriptions for Aurora and ibuprofen. She was instructed to follow-up in the office in 1 week to follow-up blood pressure. Information Peripartum Data: Delivery Method: Section Physical Exam Const: COMMON NORMALS: no acute distress, average body habitus, alert and well nourished GENERAL APPEARANCE: well developed ORIENTATION/CONSCIOUSNESS: Yes oriented to person, Yes oriented to place and Yes oriented to time Resp: COMMON NORMALS: normal respiratory effort and clear to auscultation bilaterally AUSCULTATION: clear to auscultation bilaterally Cardio: COMMON NORMALS: regular rate, regular rhythm, No gallops present (Cardio) and No rub (Cardio) RATE: regular rate RHYTHM: regular rhythm GI: COMMON NORMALS: Soft to palpation, No hepatosplenomegaly present and no masses (Except for mildly tender uterus, approximately 2 fingerbreadths below the umbilicus) INSPECTION: Yes incision (Clean, dry, and intact with Steri-Strips present.) AUSCULTATION: Yes normoactive bowel sounds PALPATION: Yes Soft to palpation, Yes Tenderness to palpation present (GI) (Tenderness in the lower abdomen noted.), Yes No hepatosplenomegaly present and No Hernia present : EXTERNAL FEMALE EXAM: No Hernia present Extremity: COMMON NORMALS: no calf tenderness NARRATIVE EXTREMITY EXAM: 1+ lower extremity edema bilaterally Neuro: SENSORIUM/ORIENTATION: Yes alert, Yes oriented to person, Yes oriented to place and Yes oriented to time Psych: COMMON NORMALS: normal affect MOOD & AFFECT: Yes euthymic mood Urinary Catheter Management^: Lozano: Cath Placed During This Visit: yes, but has since been removed by the nurse Reason for Continuing Indwelling Catheter: Decision to DC Catheter Urinary Catheter Date of Insertion: 10/27/19 Urinary Catheter Time of Insertion: 16:50 Date Urinary Catheter Removed: 10/28/19 Time Urinary Catheter Discontinued: 10:24 Discharge Data Vitals: Last Vital Signs Temp 98.2 F 10/29/19 12:06 Pulse 84 10/29/19 12:06 Resp 18 10/29/19 12:06 BP 163/99 10/29/19 12:06 Pulse Ox 98 10/29/19 04:30 Discharge Plan Discharge Patient Disposition: Home Condition: Stable Prescriptions: New hydrocodone-acetaminophen 5-325 mg Tablet 1 - 2 tab PO Q6H PRN (Reason: Moderate To Severe Pain) 7 Days Qty: 30 RF: 0 ibuprofen 800 mg Tablet 800 mg PO TID PRN (Reason: pain) Qty: 30 RF: 0 labetalol 100 mg tablet 100 mg PO BID 30 Days Qty: 60 RF: 1 Continued Gummies 400 mcg-35 mg- 25 mg-5 mg tablet,chewable 2 tab PO DAILY RF: 0 aspirin [Adult Aspirin Regimen] 81 mg tablet,delayed release (DR/EC) 81 mg PO DAILY RF: 0 Discharge Orders: Discharge Order (Routine); Ordered 10/29/19 Ordered By: Cecilio Hidalgo Referrals: Cecilio Hidalgo MD [Physician] - 11/09/19 2:45 pm (* Your 2 week incision check is October with Dr. Hidalgo at 2:45pm) Val Abreu MD [Physician] - None (* Your 1 week blood pressure check is Saturday at 10:00am. * Your 6 week check is with Dr. Tian on November at 9:45am. ) Discharge Diet: Regular Discharge Activity: Limit activity as instructed Patient Instructions: Your Baby (GEN), Expression, Collection and Storage of Breastmilk (GEN), How to Hold and Breastfeed Your Baby (GEN), and Nipple Soreness (GEN), Breast Fullness Versus Breast Engorgement (GEN), How to Increase Your Milk Supply (DC), How to Tell if Your Baby is Getting Enough Breast Milk (GEN), and Your Diet (GEN), OB C, OB Discharge Report, OB Food/Drug Interaction Guide Discharge Date/Time: 10/29/19 13:45 Discharge Attestations SPEECH LANGUAGE PATHOLOGIST TRAVEL Time Spent in Discharge Care*: less than 30 min Coding Level of Care Code Acute Application Security Developer for Chg Fwd Diagnoses Failed attempted vaginal after previous delivery O66.41 induced hypertension, delivered, current hospitalization O13.4
== END 2019-10-29 13:45 | disposition home or self-care (01) | DRG 788 ==
PROVIDERS: Admitting Provider Obstetrics & Gynecology; Family Provider Family Medicine; PCP Family Medicine; Visit Provider Obstetrics & Gynecology
PROC: 10D00Z1 Extraction of Products of Conception, Low, Open Approach (ICD-10-PCS; CPT 59514; principal; 2019-10-27 19:30)
DX: O13.4 Gestational [pregnancy-induced] hypertension without significant proteinuria, complicating childbirth (principal); Z3A.37 37 weeks gestation of pregnancy; Z37.0 Single live birth; O65.5 Obstructed labor due to abnormality of maternal pelvic organs; O34.212 Maternal care for vertical scar from previous cesarean delivery; N85.8 Other specified noninflammatory disorders of uterus; O76 Abnormality in fetal heart rate and rhythm complicating labor and delivery; O66.41 Failed attempted vaginal birth after previous cesarean delivery; O69.81X0 Labor and delivery complicated by cord around neck, without compression, not applicable or unspecified
CPT/HCPCS: 12345; 36415; 51702; 59025; 59409; 80053; 82570; 84156; 84315; 84550; 85025; 85027; 86850; 86900; 96374; J0690; J1885; J2274; J2370; J2405; J2765; J3490; J7030

== ENCOUNTER → 2020-12-19 13:32 | Outpatient (BNVA) | payer MEDICAID, SELFPAY | PROVIDERS: Family Provider Family Medicine; PCP Nurse Practitioner; Visit Provider Obstetrics & Gynecology | DX: Z12.4 Encounter for screening for malignant neoplasm of cervix (principal) | CPT/HCPCS: 88175 ==

== ENCOUNTER → 2021-06-09 11:37 | Outpatient (BNVA) | payer MEDICAID, SELFPAY | PROVIDERS: Family Provider Family Medicine; PCP Nurse Practitioner; Visit Provider Nurse Practitioner | DX: M79.10 Myalgia, unspecified site (principal); E55.9 Vitamin D deficiency, unspecified | CPT/HCPCS: 80053; 82306; 82607; 84443; 85025; 85651; 86140 ==

== ENCOUNTER → 2021-08-09 16:03 | Outpatient (BNVA) | payer MEDICAID, SELFPAY | PROVIDERS: Family Provider Family Medicine; PCP Nurse Practitioner; Visit Provider Nurse Practitioner Family | DX: R06.02 Shortness of breath (principal); R07.9 Chest pain, unspecified | CPT/HCPCS: 71046 ==

== ENCOUNTER → 2021-08-10 12:55 | Outpatient (BNVA) | payer MEDICAID, SELFPAY | PROVIDERS: Family Provider Family Medicine; PCP Nurse Practitioner; Visit Provider Nurse Practitioner Family | DX: R11.0 Nausea (principal); R53.1 Weakness; R53.83 Other fatigue; M25.50 Pain in unspecified joint; M79.10 Myalgia, unspecified site; I10 Essential (primary) hypertension; R07.9 Chest pain, unspecified; R06.02 Shortness of breath; G62.9 Polyneuropathy, unspecified; R20.0 Anesthesia of skin; R20.2 Paresthesia of skin; R63.4 Abnormal weight loss; R19.5 Other fecal abnormalities; R11.10 Vomiting, unspecified | CPT/HCPCS: 80053; 82607; 82746; 85025; 85651; 86140; 86160; 86162; 86200; 86235; 86255; 86376; 86431; 86705; 86706; 86709; 86803; 87340 ==

== ENCOUNTER → 2021-10-03 08:30 | Outpatient (BNVA) | payer MEDICAID, SELFPAY | PROVIDERS: Family Provider Family Medicine; PCP Nurse Practitioner Family; Referring Provider Nurse Practitioner Family; Visit Provider Internal Medicine | DX: M25.50 Pain in unspecified joint (principal); G62.9 Polyneuropathy, unspecified; Z79.899 Other long term (current) drug therapy | CPT/HCPCS: 72040; 72072; 72100; 72202; 73120; 82533; 82550; 82607; 82784; 83516; 83735; 86140; 86617; 86812; 99204 ==

== ENCOUNTER → 2021-10-12 11:50 | Outpatient (BNVA) | payer MEDICAID, SELFPAY | PROVIDERS: Family Provider Family Medicine; PCP Nurse Practitioner Family; Visit Provider Internal Medicine | DX: M54.6 Pain in thoracic spine (principal); M62.40 Contracture of muscle, unspecified site; R19.5 Other fecal abnormalities | CPT/HCPCS: 99214 ==

== ENCOUNTER → 2024-06-10 14:46 | Outpatient (BNVA) | payer MEDICAID, SELFPAY | PROVIDERS: Family Provider Nurse Practitioner Family; Visit Provider Nurse Practitioner Family | DX: Z30.41 Encounter for surveillance of contraceptive pills (principal) | CPT/HCPCS: 81025 ==